=== PATIENT | female | born 1975 | race Caucasian/White ===

== ENCOUNTER 2019-09-11 21:45 | Observation (INO) | payer OTHER ==
--- OUTSIDE RECORDS SUMMARY | 2019-09-11 22:04 | XMS REPORT | Continuity of Care Document ---
:1975 External Reference #:[id number] Author Name Jayson Mahoney M.D. (transmitted by agent of provider Sridevi Yu) Address [address] [place] [address] Care Team Providers Name Role Phone Parisa Huang NP Care Team Information Rda [phone] Problems Description No Information Available Social History Type Date Description Comments Sex Unknown Tobacco Use Start: Unknown Current Cigarette Smoker 1 Pack Daily ETOH Use Rare Use Of Alcohol Recreational Drug Use Never Used Drugs Allergies, Adverse Reactions, Alerts Description No Known Drug Allergies Medications Active Medications SIG Qnty Indications Ordering Date Provider Pilocarpine HCL 1 by mouth twice a 60tabs Jayson Mahoney, 05/15/2019 5mg day M.D. Tablets Levothyroxine Sodium 1 by mouth every 60tabs Jayson Mahoney, 09/09/2018 day M.D. 300mcg Tablets Calcitriol 1 by mouth twice a 60caps Jayson Mahoney, 03/21/2017 0.5mcg day M.D. Capsules Omeprazole 1 by mouth every 30caps Jayson Mahoney, 02/24/2015 40mg day M.D. Capsules DR Eliel Steniberg 1 inhalation twice Unknown a day 400mcg/Act Aerosol Proair HFA 2puffs four times Unknown 108(90Base) a day as needed mcg/Act Aerosol for sob Oxycodone HCL Unknown Tablets Spiriva Respimat take 2 puffs once Unknown daily. 1.25mcg/Act Aerosol Atorvastatin Calcium 1 by mouth every Unknown day 40mg Tablets Medications Administered in Office Medication SIG Qnty Indications Ordering Provider Date Injection Ceftriaxone Sodium Per Jayson Mahoney M.D. 10/27/2018 250 MG (Rocephin) Injection Depomedrol 40md/1cc Jayson Mahoney M.D. 10/06/2017 Injection Immunizations Description No Information Available Vital Signs Date Vital Result Comment 09/11/2019 1:15pm Weight 224.00 lb Height 67 inches 5'7" BMI (Body Mass Index) 35.1 kg/m2 BP Systolic 151 mmHg BP Diastolic 97 mmHg Heart Rate 117 /min O2 % BldC Oximetry 95 % Body Temperature 97.7 F Pain Level 0 05/15/2019 1:13pm Weight 212.00 lb Height 67 inches 5'7" BMI (Body Mass Index) 33.2 kg/m2 BP Systolic 154 mmHg BP Diastolic 68 mmHg Heart Rate 118 /min O2 % BldC Oximetry 94 % Body Temperature 97.1 F Pain Level 0 Results Description No Information Available Procedures Date Code Description Status 05/15/2019 27265 Ultrasound Head/Neck Completed 05/15/2019 40747 Fiberoptic Laryngoscopy,Diag. Completed 03/14/2019 60226 Ultrasound Head/Neck Completed 03/14/2019 97947 Fiberoptic Laryngoscopy,Diag. Completed Medical Devices Description No Information Available Encounters Type Date Location Provider Dx Diagnosis Office Visit 05/15/2019 Main Office Jayson Mahoney M.D. Z85.850 Personal history of 1:15p malignant neoplasm of thyroid E03.9 Hypothyroidism, unspecified R49.0 Dysphonia K21.9 Gastro-esophageal reflux disease without esophagitis Office Visit 03/14/2019 1:00p Main Office Jayson Mahoney Z85.850 Personal history M.DBlanca of malignant neoplasm of thyroid E03.9 Hypothyroidism, unspecified R49.0 Dysphonia R06.02 Shortness of breath Assessments Date Code Description Provider 05/15/2019 Z85.850 Personal history of malignant neoplasm of Jayson Mahoney M.D. thyroid 05/15/2019 E03.9 Hypothyroidism, unspecified Jayson Mahoney M.D. 05/15/2019 R49.0 Dysphonia Jayson Mahoney M.D. 05/15/2019 K21.9 Gastro-esophageal reflux disease without Jayson Mahoney M.D. esophagitis 03/14/2019 Z85.850 Personal history of malignant neoplasm of Jayson Mahoney M.D. thyroid 03/14/2019 E03.9 Hypothyroidism, unspecified Jayson Mahoney M.D. 03/14/2019 R49.0 Dysphonia Jayson Mahoney M.D. 03/14/2019 R06.02 Shortness of breath Jayson Mahoney M.D. Plan of Treatment No Information Available Functional Status Description No Information Available Mental Status Description No Information Available Referrals Description No Information Available
--- OUTSIDE RECORDS SUMMARY | 2019-09-11 22:04 | XMS REPORT | Continuity of Care Document ---
:1975 External Reference #:[id number] Demographics Address [address] [place] [address] Home Phone [phone] Mobile Phone [phone] Preferred Language en Marital Status Not or Episcopalian Affiliation Unknown Race White Ethnic Group Not or Author Name Marc Gutierrez DO, MPH Address [address] [place] [address], [address] [place] [address] Care Team Providers Name Role Phone Sean Pratt M.D. - Family Care Team Information Civil Process Server [phone] Medicine Rashmi Valiente Care Team Information Civil Process Server [phone] Problems Description No Information Available Social History Type Date Description Comments Sex Unknown Cigarette Use Current Cigarette Smoker 1 Pack Daily ETOH Use Denies alcohol use Tobacco Use Start: Unknown Patient is a current smoker, smokes every day Smoking Status Reviewed: 08/17/19 Patient is a current smoker, smokes every day Allergies, Adverse Reactions, Alerts Description No Known Drug Allergies Medications Active Medications SIG Qnty Indications Ordering Date Provider Cyclobenzaprine HCL si/2 to 1 60tabs Marc Gutierrez, 12/28/2018 10mg Tablets by mouth twice DO, MPH a day as directed Alpha Lipoic Acid take one 60caps Marc Gutierrez, 11/11/2016 200mg Capsules capsule by DO, MPH mouth every 8 to 12 hours as directed chronic pain. Oxycodone HCL si by mouth 80tabs Marc Gutierrez, 09/14/2016 10mg Tablets every 4 to 6 DO, MPH hours as directed chronic pain patient. Dok Unknown 100mg Capsules Hydrochlorothiazide 1 by mouth Unknown 25mg Tablets every day Bupropion Hydrochloride ER Unknown (SR) 150mg Tablets ER 12HR VT-Acid Gas Relief Unknown 80mg Chewtabs Anoro Ellipta Unknown 62.5-25mcg/Inh Aerosol Ibuprofen as needed Unknown 800mg Tablets Qvar Redihaler Unknown 80mcg/Act Aerosol Calcitriol 1 by mouth Unknown 0.25mcg Capsules twice a day Albuterol Inhalation Unknown 90mcg/Dose Aerosol Tylenol Extra Strength si by mouth Unknown 500mg every day as Tablets directed Atorvastatin Calcium Unknown 40mg Tablets Synthroid Unknown 300mcg Tablets Citracal +D3 Unknown [phone]-mg-Unit Chewtabs Omeprazole si by mouth Unknown 40mg Capsules DR once a day as directed dosage change Immunizations Description No Information Available Vital Signs Date Vital Result Comment 08/17/2019 10:55am BP Systolic 128 mmHg BP Diastolic 76 mmHg Heart Rate 78 /min Respiratory Rate 20 /min Height 67 inches 5'7" Weight 217.00 lb Pain Level 3 Pain at this time. Pain Level With Medicine 2 on average with meds Pain Level Without Medicine 9 without meds BMI (Body Mass Index) 34.0 kg/m2 07/18/2019 3:08pm BP Systolic 146 mmHg BP Diastolic 82 mmHg Heart Rate 88 /min Respiratory Rate 20 /min Height 67 inches 5'7" Weight 218.00 lb Pain Level 6 Pain at this time. 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 Office Visit 06/18/2019 3:15p Main Office as Marc Gutierrez G89.29 Other chronic Of 09/29/13 DO, MPH pain M54.5 Low back pain M54.2 Cervicalgia M79.605 Pain in left leg M79.604 Pain in right leg 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 Z71.89 Other specified counseling Office Visit 05/10/2019 2:45p Main Office as Marc Gutierrez G89.29 Other chronic Of 09/29/13 DO, MPH pain M54.5 Low back pain M54.2 Cervicalgia 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 Office Visit 04/10/2019 3:00p Main Office as Marc Gutierrez G89.29 Other chronic Of 09/29/13 DO, MPH pain M54.2 Cervicalgia M54.5 Low back pain 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 Z71.89 Other specified counseling Office Visit 03/09/2019 2:30p Main Office as Marc Gutierrez, G89.29 Other chronic Of 09/29/13 DO, MPH pain M54.2 Cervicalgia M54.5 Low back pain Z79.891 correction (current) use of opiate analgesic Assessments Date Code Description Provider 08/17/2019 G89.29 Other chronic pain Gutierrez, Marc, DO, MPH 08/17/2019 M54.2 Cervicalgia Gutierrez, Marc, DO, MPH 08/17/2019 M54.5 Low back pain Gutierrez, Marc, DO, MPH 08/17/2019 M79.605 Pain in left leg Gutierrez, Marc, DO, MPH 08/17/2019 M79.604 Pain in right leg Gutierrez, Marc, DO, MPH 08/17/2019 Z79.891 correction (current) use of opiate analgesic Gutierrez, Marc , DO, MPH 07/18/2019 G89.29 Other chronic pain Gutierrez, Marc, DO, MPH 07/18/2019 M54.2 Cervicalgia Gutierrez, Marc, DO, MPH 07/18/2019 M54.5 Low back pain Gutierrez, Marc, DO, MPH 07/18/2019 M79.605 Pain in left leg Gutierrez, Marc, DO, MPH 07/18/2019 M79.604 Pain in right leg Gutierrez, Marc, DO, MPH 07/18/2019 Z79.891 correction (current) use of opiate analgesic Gutierrez, Marc , DO, MPH 06/18/2019 G89.29 Other chronic pain Gutierrez, Marc, DO, MPH 06/18/2019 M54.5 Low back pain Gutierrez, Marc, DO, MPH 06/18/2019 M54.2 Cervicalgia Gutierrez, Marc, DO, MPH 06/18/2019 M79.605 Pain in left leg Gutierrez, Marc, DO, MPH 06/18/2019 M79.604 Pain in right leg Gutierrez, Marc, DO, MPH 06/18/2019 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 Gutierrez, Marc , DO, MPH 06/18/2019 Z71.89 Other specified counseling Gutierrez, Marc, DO, MPH 05/10/2019 G89.29 Other chronic pain Gutierrez, Marc, DO, MPH 05/10/2019 M54.5 Low back pain Gutierrez, Marc, DO, MPH 05/10/2019 M54.2 Cervicalgia Gutierrez, Marc, DO, MPH 05/10/2019 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 Gutierrez, Marc , DO, MPH 04/10/2019 G89.29 Other chronic pain Gutierrez, Marc, DO, MPH 04/10/2019 M54.2 Cervicalgia Gutierrez, Marc, DO, MPH 04/10/2019 M54.5 Low back pain Gutierrez, Marc, DO, MPH 04/10/2019 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 Symptoms and complaints discussed and reviewed today. No significant changes in physical findings. Continue current medical pain management.M54.2 CervicalgiaComments:Chronic. Symptoms and complaints discussed and reviewed today. No significant changes in physical findings. Continue current medical pain management.M54.5 Low back painComments:Chronic. Symptoms and complaints discussed and reviewed today.No changes in physical findings. Patient is stable and comfortable when current medical therapy is rendered.M79.605 Pain in left legComments:Chronic. Symptoms and complaints discussed and reviewed today. No significant changes in physical findings. Continue current medical pain management.M79.604 Pain in right legComments: Chronic. Symptoms and complaints discussed and reviewed today. No significant changes in physical findings. Continue current medical pain management.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New Labs:Urine Drug Screen, Ordered: 08/17/19Comments:Urine drug screen sample taken today to monitor opiate use and to monitor use of illicit substances.Will discuss results at next appointment.The following tests were ordered:6 AM, AMPH, CHRIS, DEMARCUS, BUP, CARIS , COCM, ETG, FENT, MCSHSG, OPI, OXY, PCP, TAPEN, XTSY, ZOLP. A urine drug test (UDT) was ordered for this patient and collected on site today. Creatinine has been ordered as well for specimen validity, not for kidney function. Preliminary UDT results are not final and should not be used to determine patient care or plan of treatment. Initially a qualitative immunoassay screen will bedone. Any inconsistent or positive findings will be further tested with a more comprehensive quantitative confirmation LCMS study. It is part of the treatment process of prescribing controlled substances and is considered standard of care.AllComments:Continue current medical pain management ; injection therapy, osteopathic manipulation, PT / modalities, and consults as needed to manage chronic pain.Non - opioid pain management discussed and optionsdiscussed.Side effects discussed; anticipatory guidance given. Patient clearly understand and agree with all medical treatments and suggestions. All medicines prescribed are adequate and appropriate for this patient's complaint of pain, medical history, physical, and personal goals.Goals of Treatment are to provide adequate and appropriate multidisciplinary medical pain management to increase/ maintain patient's quality of life and functionality while maintaining satisfactory side effect profile andminimizing long term care administrator end-organ damage. Importance of regular nutrition throughout the day discussed.Activity as toleratedContinue with PCP Functional Status Description No Information Available Mental Status Description No Information Available Referrals Description No Information Available
--- OUTSIDE RECORDS SUMMARY | 2019-09-11 22:04 | XMS REPORT | Continuity of Care Document ---
:1975 External Reference #:[id number] Demographics Address [address] [place] [address] Home Phone [phone] Mobile Phone [phone] Preferred Language en Marital Status Not or Buddhist Affiliation Unknown Race White Ethnic Group Not or Author Name Marc Gutierrez DO, MPH Address [address] [place] [address], [address] [place] [address] Care Team Providers Name Role Phone Sean Pratt M.D. - Family Care Team Information Salesperson [employer] Medicine Rashmi Valiente Care Team Information Salesperson [employer] [phone] Problems Description No Information Available Social History Type Date Description Comments Sex Unknown Cigarette Use Current Cigarette Smoker 1 Pack Daily ETOH Use Denies alcohol use Tobacco Use Start: Unknown Patient is a current smoker, smokes every day Smoking Status Reviewed: 07/18/19 Patient is a current smoker, smokes every [...] chronic pain. Oxycodone HCL si by mouth 100tabs Marc Gutierrez, 09/14/2016 10mg Tablets every 4 to 6 DO, MPH hours as directed chronic pain patient. Dok Unknown 100mg Capsules Hydrochlorothiazide 1 by mouth Unknown 25mg Tablets every day Bupropion Hydrochloride ER Unknown (SR) 150mg Tablets ER 12HR NE-Acid Gas Relief Unknown 80mg Chewtabs Anoro Ellipta Unknown 62.5-25mcg/Inh Aerosol Ibuprofen as needed Unknown 800mg Tablets Qvar Redihaler Unknown 80mcg/Act Aerosol Calcitriol 1 by mouth Unknown 0.25mcg Capsules twice a day Albuterol Inhalation Unknown 90mcg/Dose Aerosol Tylenol Extra Strength si by mouth Unknown 500mg every day as Tablets directed Atorvastatin Calcium Unknown 40mg Tablets Synthroid Unknown 300mcg Tablets Citracal +D3 Unknown [id number]-mg-Unit Chewtabs Omeprazole si by mouth Unknown 40mg Capsules DR once a day as directed dosage change Immunizations Description No Information Available Vital Signs Date Vital Result Comment 07/18/2019 3:08pm BP Systolic 146 mmHg BP Diastolic 82 mmHg Heart Rate 88 /min Respiratory Rate 20 /min Height 67 inches 5'7" Weight 218.00 lb Pain Level 6 Pain at this time. 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 Z71.89 Other specified counseling Office Visit 05/10/2019 2:45p Main Office as Marc Gutierrez G89.29 Other chronic Of 09/29/13 DO, MPH pain M54.5 Low back pain M54.2 Cervicalgia 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 Office Visit 04/10/2019 3:00p Main Office as GutierrezMarc nielsen, G89.29 Other chronic Of 09/29/13 DO, MPH pain M54.2 Cervicalgia M54.5 Low back pain Z79.891 snf (current) use of opiate analgesic Z71.89 Other specified counseling Office Visit 03/09/2019 2:30p Main Office as GutierrezMarc nielsen, G89.29 Other chronic Of 09/29/13 DO, MPH pain M54.2 Cervicalgia M54.5 Low back pain 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 Office Visit 02/08/2019 2:00p Main Office as GutierrezMarc nielsen, G89.29 Other chronic Of 09/29/13 DO, MPH pain M54.5 Low back pain M54.2 Cervicalgia Z63.4 Disappearance and of family member 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 Assessments Date Code Description Provider 07/18/2019 G89.29 Other chronic pain Gutierrez, Marc, DO, MPH 07/18/2019 M54.2 Cervicalgia Gutierrez, Marc, DO, MPH 07/18/2019 M54.5 Low back pain Gutierrez, Marc, DO, MPH 07/18/2019 M79.605 Pain in left leg Gutierrez, Marc, DO, MPH 07/18/2019 M79.604 Pain in right leg Gutierrez, Marc, DO, MPH 07/18/2019 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 Gutierrez, Marc , DO, MPH 06/18/2019 G89.29 Other chronic pain Gutierrez, Marc, DO, MPH 06/18/2019 M54.5 Low back pain Gutierrez, Marc, DO, MPH 06/18/2019 M54.2 Cervicalgia Gutierrez, Marc, DO, MPH 06/18/2019 M79.605 Pain in left leg Gutierrez, Marc, DO, MPH 06/18/2019 M79.604 Pain in right leg Gutierrez, Marc, DO, MPH 06/18/2019 Z79.891 snf (current) use of opiate analgesic Gutierrez, Marc , DO, MPH 06/18/2019 Z71.89 Other specified counseling Gutierrez, Marc, DO, MPH 05/10/2019 G89.29 Other chronic pain Gutierrez, Marc, DO, MPH 05/10/2019 M54.5 Low back pain Gutierrez, Marc, DO, MPH 05/10/2019 M54.2 Cervicalgia Gutierrez, Marc, DO, MPH 05/10/2019 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 Gutierrez, Marc , DO, MPH 04/10/2019 G89.29 Other chronic pain Gutierrez, Marc, DO, MPH 04/10/2019 M54.2 Cervicalgia Gutierrez, Marc, DO, MPH 04/10/2019 M54.5 Low back pain Gutierrez, Marc, DO, MPH 04/10/2019 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 Gutierrez, Marc , DO, MPH 04/10/2019 Z71.89 Other specified counseling Gutierrez, Marc, DO, MPH 03/09/2019 G89.29 Other chronic pain Gutierrez, Marc, DO, MPH 03/09/2019 M54.2 Cervicalgia Gutierrez, Marc, DO, MPH 03/09/2019 M54.5 Low back pain Gutierrez, Marc, DO, MPH 03/09/2019 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 Continue current medical pain management.Z79.891 snf (current) use of opiate analgesicNew Labs:Urine Drug Screen, Ordered: 07/18/19Comments:Urine drug screen sample taken today to monitor [...] while maintaining satisfactory side effect profile andminimizing correction end-organ damage. Importance of regular nutrition throughout the day discussed.Activity as toleratedContinue with PCP Functional Status Description No Information Available Mental Status Description No Information Available Referrals Description No Information Available
[2019-09-11] MEDS ORDERED: NS 0.9% 1000 ML** 1,000 ML IV ONE (22:30)
[2019-09-11] MEDS ORDERED: Metoclopramide IV* 5 MG/ML 2 ML VIAL IV ONE (22:30)
--- NOTE | 2019-09-11 22:52 | ED ---
Neurological HPI - HPI Summary HPI Summary: 44 year old female presents to the ED with a chief complaint of DIRECTOR [employer] SAFETY shunt discomfort and neck pain starting several days ago. Patient reports pain around her ear along her shunt as well as a dull headache behind her eyes. She had nausea and vomiting last week but has since resolved. Patient has no changes in vision fever, or chills. Patient smokes tobacco and drinks alcohol occasionally. She does not do recreational drugs. Patient had a hysterectomy, DIRECTOR [employer] SAFETY shunt insertion, and knee surgery. 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 PMHx of COPD. Medications reviewed. - History of Current Complaint Chief Complaint: EDHeadache Stated Complaint: CHECK SHUNT AND TUBE PER PT Time Seen by Provider: 09/11/19 22:27 Hx Obtained From: Patient Onset/Duration: Started days ago, Still Present Timing: Constant Onset Severity: Moderate Current Severity: Moderate Headache Location: Frontal Pain Intensity: 7 Pain Scale Used: 0-10 Numeric Character: Dull Aggravating: Headaches Alleviating: Unknown Associated Signs and Symptoms: Positive: Neck Pain/Stiffness - Additional Pertinent History Primary Care Physician: DON - Allergy/Home Medications Allergies/Adverse Reactions: Allergies Allergy/AdvReac Type Severity Reaction Status Date / Time No Known Allergies Allergy Verified 09/11/19 21:53 Home Medications: Home Medications Beclomethasone 80 MCG MDI(NF) [Qvar 80 MCG MDI(NF)] 1 puff INH BID 09/11/19 [ History Confirmed 09/11/19] Calcitriol CAP* [Rocaltrol CAP*] 0.5 mcg PO BID MDD 0.5 mcg 09/11/19 [History Confirmed 09/11/19] Cyclobenzaprine TAB* [Flexeril 10 MG TAB*] 5 - 10 mg PO BID PRN 09/11/19 [ History Confirmed 09/11/19] Docusate CAP* [Colace Cap*] 100 mg PO BID 09/11/19 [History Confirmed 09/11/19] Hydrochlorothiazide TAB* [Hydrodiuril TAB*] 12.5 mg PO DAILY 09/11/19 [History Confirmed 09/11/19] Levothyroxine Sodium [Synthroid] 300 mcg PO DAILY 09/11/19 [History Confirmed ] Oxycodone TAB(NF) [Oxycodone HCl 10 MG] 10 mg PO .Q4-6H PRN 09/11/19 [History Confirmed 09/11/19] Pilocarpine TAB (NF) 5 mg PO BID 09/11/19 [History Confirmed 09/11/19] Umeclidin/Vilant 62.5 MDI(NF) [ANORO 62.5/25 Ellipta DEVICE (NF)] 1 puff INH DAILY 09/11/19 [History Confirmed 09/11/19] buPROPion SR TAB* [Wellbutrin SR TAB*] 150 mg PO BID 09/11/19 [History Confirmed 09/11/19] PMH/Surg Hx/FS Hx/Imm Hx Endocrine/Hematology History: Reports: Hx Thyroid Disease - HYPOTHYROID- S/P- -THYROIDECTOMY Respiratory History: Reports: Hx Chronic Obstructive Pulmonary Disease (COPD), Other Respiratory Problems/Disorders - Voice hoarse/soft r/t surgery GI History: Reports: Hx Gastroesophageal Reflux Disease Musculoskeletal History: Reports: Hx Arthritis - BACK, Other Musculoskeletal History - Osteoarthritis Sensory History: Denies: Hx Contacts or Glasses, Hx Hearing Aid Opthamlomology History: Denies: Hx Contacts or Glasses Neurological History: Reports: Hx Headaches, Hx Migraine - TREATS WITH PAIN PILL OR ICE BACK AND REST, Other Neuro Impairments/Disorders - CHIARI MALFORMATION/SYRINGOMYELIA &SYRINGBULBIA - Cancer History Cancer Type, Location and Year: Thyroid-Rt lobe removed Hx Chemotherapy: No - Surgical History Surgery Procedure, Year, and Place: [id number]. THYROIDECTOMY-05/2015-[facility]- RIGHT side removed. LEFT KNEE SURGERY- PLATES AND SCREWS. RIGHT HANDS SURGERY- PLATES AND SCREWS. Chiari I, Cervical Laminectomy-09/2015, [employer]ET[employer] Shunt 11/2015 Hx Anesthesia Reactions: No Infectious Disease History: No Infectious Disease History: Denies: Hx of Known/Suspected MRSA, History Other Infectious Disease, Traveled Outside the [place] in Last 30 Days - Family History Known Family History: Positive: None - reviewed & noncontributory - Social History Alcohol Use: Occasionally Hx Substance Use: No Substance Use Type: Reports: None Hx Tobacco Use: Yes Smoking Status (MU): Heavy Every Day Tobacco Smoker Type: Cigarettes Amount Used/How Often: 1 PPD X 28 YEARS - Additional Comments History Additional Comments: PMHx Thyroid Cancer COPD Communicating hydrocephalus Subdural Hygroma s/p craniotomy (DIRECTOR [employer]AF[employer] shunt insertion) Review of Systems - ROS Summary Review of Systems Summary: Home Medications Medication Instructions Recorded Confirmed Type Omeprazole CAP (NF) [Prilosec CAP* 40 mg PO QAM 09/30/15 12/05/15 History 20 MG] Beclomethasone 80 MCG MDI(NF) 1 puff INH BID 09/11/19 09/11/19 History [Qvar 80 MCG MDI(NF)] Bupropion XL* [Wellbutrin XL *] 150 mg PO BID 09/11/19 09/11/19 History Calcitriol CAP* [Rocaltrol CAP*] 0.5 mcg PO BID MDD 0.5 mcg 09/11/19 09/11/19 History Cyclobenzaprine TAB* [Flexeril 10 5 - 10 mg PO BID PRN 09/11/19 09/11/19 History MG TAB*] Docusate CAP* [Colace Cap*] 100 mg PO BID 09/11/19 09/11/19 History Hydrochlorothiazide TAB* 12.5 mg PO DAILY 09/11/19 09/11/19 History [Hydrodiuril TAB*] Levothyroxine Sodium [Synthroid] 300 mcg PO DAILY 09/11/19 09/11/19 History Oxycodone TAB(NF) [Oxycodone HCl 10 mg PO .Q4-6H PRN 09/11/19 09/11/19 History 10 MG] Pilocarpine TAB (NF) 5 mg PO BID 09/11/19 09/11/19 History Umeclidin/Vilant 62.5 MDI(NF) 1 puff INH DAILY 09/11/19 09/11/19 History [ANORO 62.5/25 Ellipta DEVICE (NF)] Negative: Fever Negative: Blurred Vision Positive: Vomiting, Nausea Positive: Myalgia - Neck pain along DIRECTOR [employer] shunt, behind ear Positive: Headache - Dull pain behind eyes, radiating to neck All Other Systems Reviewed And Are Negative: Yes Physical Exam - Summary Physical Exam Summary: General: Obese female. Mildly uncomfortable at rest. HEENT: Normocephalic, Atraumatic. Eyes: Conjuctiva normal, PERRL. Ears: TMs within normal limits. Nares: (-) discharge, (-) erythema. Oropharynx: Clear, mucous membranes moist, (-) exudates. Neck: Soft, FROM, (-) lymphadenopathy, (-) thyromegaly, (-) JVD. Mildly tender linear extrusion behind right ear. Hoarse voice. Cardiovascular: Normal sinus rhythm, (-) murmur. Lungs: Clear to auscultation bilaterally (-) wheezes, (-) rales, (-) rhonchi. Abdomen: Soft, non-tender, non-distended, (-) organomegaly, normal bowel sounds. Back: (-) CVA tenderness Extremities: No edema. Skin: Warm, dry, (-) rash. Neuro: Alert and oriented x3, no focal deficits. Psychiatric: Mood normal, affect normal. Triage Information Reviewed: Yes Vital Signs On Initial Exam: Initial Vitals Temp Pulse Resp BP Pulse Ox 97.2 F 114 20 172/106 96 09/11/19 21:50 09/11/19 21:50 09/11/19 21:50 09/11/19 21:50 09/11/19 21:50 Vital Signs Reviewed: Yes Procedures - Sedation Patient Received Moderate/Deep Sedation with Procedure: No Diagnostics - Vital Signs Vital Signs Temp Pulse Resp BP Pulse Ox 09/11/19 21:50 97.2 F 114 20 172/106 96 - Laboratory Result Diagrams: 09/11/19 23:46 09/12/19 05:26 Lab Statement: Any lab studies that have been ordered have been reviewed, and results considered in the medical decision making process. - CT Brain CT CT Interpretation Completed By: Radiologist Summary of CT Findings: IMPRESSION: 1. Patient has had a posterior fossa craniotomy. Placement of a left lateral ventricular catheter. Since prior head CT of 07/28/2018 there has been no new findings. 2. Slit-like ventricles lateral ventricles. This can be the cause of headaches. An ED physician has reviewed this report. Course/Dx - Course Course Of Treatment: 44-year-old female presents with headaches 1-2 weeks. Patient has a history of Chiari malformation and DIRECTOR MED[employer]AFET[employer] shunt. She's been having headaches over the last couple weeks. Sometimes with nausea vomiting. Spoke with her neurosurgeon who referred her for evaluation. Patient has a palpable shunt behind her right ear. No significant laboratory findings. CT head demonstrates slit like ventricles. Patient referred to the hospitalist for admission and neurosurgical consult. - Diagnoses Provider Diagnoses: Chiari malformation type I, Headache - Physician Notifications Discussed Care Of Patient With: Natalia Ambriz - Hospitalist Time Discussed With Above Provider: 23:15 Instructed by Provider To: Admit As Inpatient - Spoke to Dr. Ambriz who accepted patient for admission. Admit/Transition Orders Completed By ED Provider: Yes Discharge ED - Sign-Out/Discharge Documenting (check all that apply): Patient Departure - admit home - Discharge Plan Condition: Fair Disposition: ADMITTED TO [facility] - Billing Disposition and Condition Condition: FAIR Disposition: Admitted to [facility] - Attestation Statements Document Initiated by Scribe: Yes Documenting Scribe: Davide Vega Provider For Whom Scribe is Documenting (Include Credential): Kyra Hall MD Scribe Attestation: Davide Quesada , scribed for Kyra Hall MD on 09/14/19 at 2131. Scribe Documentation Reviewed: Yes Provider Attestation: The documentation as recorded by the scribeDavide accurately reflects the service I personally performed and the decisions made by Kyra maloney MD Status of Scribe Document: Viewed
[2019-09-11] MEDS ORDERED: Ondansetron INJ* 2 MG/ML VIAL IV PRN (23:17)
[2019-09-11] MEDS ORDERED: Nicotine Lozenge* mini 4 MG LOZNG.MINI MT PRN (23:18)
[2019-09-11] MEDS ORDERED: Albuterol/Ipratropium NEB.SOL* Albuterol 2.5 MG/Ipratropium 0.5 MG 3 ML INH PRN (23:18)
[2019-09-11 23:53] LABS: ABS Basophils 0.1 10^3/ul (0-0.2); ABS Eosinophils 0.1 10^3/ul (0-0.6); ABS Lymphocytes 2.3 10^3/ul (1.0-4.8); ABS Monocytes 0.5 10^3/ul (0-0.8); ABS Neutrophils 4.9 10^3/ul (1.5-7.7); Eosinophil % 1.6 %; Hematocrit 41 % (35-47); Hemoglobin 14.2 g/dL (12.0-16.0); Lymphocyte % 28.9 %; Mean Corpuscular HGB Conc 35 g/dL (31-36); Mean Corpuscular Hemoglobin 36 pg (27-31); Mean Corpuscular Volume 103 fL (80-97); Mean Platelet Volume 7.6 fL (7.4-10.4); Nucleated Red Blood Cells % 0.1; Platelet Count 263 10^3/uL (150-450); Red Blood Count 4.01 10^6 /uL (3.70-4.87); Red Cell Distribution Width 14 % (10-15); White Blood Count 7.9 10^3/uL (3.5-10.8)
[2019-09-11 23:58] LABS: INR 1.03 (0.82-1.09)
[2019-09-12 00:10] LABS: Albumin 3.7 g/dL (3.2-5.2); Albumin/Globulin Ratio 1.4 (1-3); BUN/Creatinine Ratio 13.4 (8-20); Calcium 8.9 mg/dL (8.6-10.3); EGFR African American 114.7 (>60); EGFR Non-African American 94.8 (>60); Globulin 2.6 g/dL (2-4); Potassium 3.4 mmol/L (3.5-5.0); Total Bilirubin 0.4 mg/dL (0.2-1.0); Total Protein 6.3 g/dL (6.4-8.9)
[2019-09-12 00:17] LABS: HCG Pregnancy 2.84 mIU/mL
--- NOTE | 2019-09-12 01:08 | HP ---
HISTORY AND PHYSICAL: DATE OF ADMISSION: 09/11/19 PRIMARY CARE PROVIDER: Usha Shields NP GUEST RELATIONS MANAGER: Baldo Lemons, patient's fiance. CODE STATUS: Full. CHIEF COMPLAINT: Headaches. SOURCE OF INFORMATION: HPI is obtained from patient. She is a fair historian. HISTORY OF PRESENT ILLNESS: This is a 44-year-old female with past medical history of Chiari malformation type 1, status post surgical decompression complicated by hydrocephalus in November of 2015, status post AWNING HANGER HELPER shunt; history of thyroid carcinoma, status post partial thyroidectomy and resultant hypothyroidism; hypertension; tobacco use; COPD; obesity; chronic pain, on long- term opiate pain medication, who initially presented to [place] [facility] with complaint of intense headache and "palpable shunt in her neck." The patient reports that she has had intermittent worsening headaches over the last 1 to 2 weeks associated with nausea and episodes of emesis. She denies gait changes, vision changes, or new neurologic function. She assumed initially that it was a musculoskeletal issue but then she noticed that behind her right ear, she felt that her shunt "shifted," previously before where it had not been palpable , it became palpable and thus she called her neurosurgeon, who recommended she be admitted to the hospital for observation and shunt check on 09/12/19. She denies any fevers, chills, vision changes, gait changes, or focal neurological deficits, she reports that her headaches are not positional. EMERGENCY ROOM COURSE In [place], her vital signs were stable, 135/100, heart rate 102, respiratory rate 25, 95% on room air, and 97.7. They called Dr. Harris, who informed them to transfer the patient here. In the emergency room, her blood pressure is 130/106, heart rate is 104, temperature is 97.2. She is 96% on room air. She was given IV fluids and Reglan. Labs were performed, which are largely unremarkable and a CT head was performed that showed no evidence of hydrocephalus, and some "slit like" ventricles concerning for low CSF volume. Because of pending neurosurgical evaluation, the hospitalist was asked to admit under observation. PAST MEDICAL HISTORY: History of Chiari malformation, status post surgical decompression, complicated by hydrocephalus in November of 2015 and status post AWNING HANGER HELPER shunt; history of thyroid carcinoma, status post thyroidectomy with resultant hypothyroidism; hypertension; tobacco use; COPD; obesity; chronic pain, on long - term opiate pain medication. PAST SURGICAL HISTORY: Surgical decompression of Chiari, repair of CSF leak in 09/2015, 11/2015; AWNING HANGER HELPER shunt; knee surgery; hysterectomy; and thyroidectomy, partial. MEDICATIONS: 1. Omeprazole 40 daily. 2. QVAR 1 puff inhaled b.i.d. 3. Bupropion 150 mg p.o. b.i.d. 4. Calcitriol 0.5 mcg p.o. b.i.d. 5. Cyclobenzaprine 5 to 10 mg p.o. b.i.d. p.r.n. 6. Docusate 100 mg p.o. b.i.d. 7. Hydrochlorothiazide 12.5 mg p.o. daily. 8. Levothyroxine 300 mcg p.o. daily. 9. Oxycodone 10 mg p.o. q.6 hours p.r.n. 10. Pilocarpine 5 mg p.o. b.i.d. 11. Anoro inhaler 1 puff inhaled daily. 12. Omeprazole 40 mg p.o. q.a.m. ALLERGIES: No known drug allergies. FAMILY HISTORY: Positive for heart disease and lung disease. SOCIAL HISTORY: The patient is disabled. She lives at home with wilmer. She has a 20-pack year history with 1 pack per day currently. She denies alcohol or illicits. REVIEW OF SYSTEMS: Constitutional: Negative for fever, chills, malaise. HEENT : Negative for vision changes, positive for headache. Negative for sore throat. Cardiovascular: Negative for chest pain, palpitations, orthopnea. Respiratory: Negative for shortness of breath, cough, or pleuritic chest pain. GI: Negative for vomiting, diarrhea. Positive for nausea. Negative for abdominal pain. : Negative for dysuria or hematuria. Musculoskeletal: Negative for myalgias, arthralgias, or weakness. Skin: Negative for rashes or lesions. Neurologic: Negative for focal weakness or numbness. Psychiatric: Negative for depression. Positive for worsening anxiety. Endocrine: Negative for polyuria or polydipsia. Heme: Negative for easy bruising, bleeding or lymphadenopathy. Allergy: Negative for seasonal or frequent infections. PHYSICAL EXAMINATION GENERAL APPEARANCE: Well-appearing obese woman, in no acute distress, lying comfortably in bed. VITAL SIGNS: At the time of physical exam, 97.2, heart rate 100, respiratory rate 20, oxygen saturation 96% on room air, blood pressure 130/90. HEENT: Pupils equal and reactive. Extraocular muscles are intact. Sclerae are anicteric. Oropharynx is clear. Mallampati 4. Dry mucous membranes. NECK: Supple with tenderness to palpation at right sternocleidomastoid. ? Possible palpable shunt, negative meningeal signs. Otherwise supple with no supraclavicular or cervical lymphadenopathy. RESPIRATORY: Coarse lungs sounds throughout but no israel wheeze, consolidation , or rhonchi. CARDIAC: Regular rate and rhythm with no murmurs, rubs or gallops. GI: Belly is soft, nontender, nondistended with normal active bowel sounds and no tenderness to palpation. SKIN: With no obvious rashes or lesions. MUSCULOSKELETAL: She moves all 4 limbs spontaneously. EXTREMITIES: Warm and well perfused without evidence of edema and 2+ palpable pulses in bilateral lower extremities. NEUROLOGIC/PSYCHIATRIC: Cranial nerves II through XII are intact. She is A and O x4. She has nonfocal neurologic deficits with 5/5 strength. Sensation intact throughout. LABS AND STUDIES: CBC: Notable for elevated MCV at 100, BMP: Notable for mild hypoK at 3.4, otherwise normal CT head shows AWNING HANGER HELPER shunt with no evidence of active hydrocephalus or and "slit like ventricles" ASSESSMENT AND PLAN: A 44-year-old female with past medical history of Chiari malformation type 1, status post surgical decompression, complicated by hydrocephalus in November 2015, status post ventriculoperitoneal shunt; history of thyroid carcinoma with resultant medical hypothyroidism; hypertension; tobacco use; chronic obstructive pulmonary disease; obesity; chronic pain, on long-term opiate pain medication, who presented with intermittent headaches associated with nausea, a complaint of "palpable shunt" or change in her shunt status. She is being admitted for neurosurgical evaluation under observation to the surgical floor. She has no signs of current infection, blockage, though possibly has malfunction of the reservoir as she appears to have low CSF volume. 1. Headache in the setting of ventriculoperitoneal shunt. Neurosurgery can evaluate her tomorrow and determine if there are any further diagnostic steps that they would like. She has no evidence of immediate complication during emergency room evaluation, possibly headache related to small size of ventricles and overdrainage. 2. Hypertension: We will resume the patient's home hydrochlorothiazide. 3. Hypothyroidism: We will continue patient's home Synthroid and check TSH with morning labs. 4. Chronic pain. Her home opiates are continued. 5. She denies any constipation. Last bowel movement was this morning. 6. Chronic obstructive pulmonary disease: The patient is on home meds. She is currently not in exacerbation. Her inhalers will be offered as well as p.r.n. DuoNebs along with nicotine replacement. 7. Tobacco use: Nicotine replacements offered. Continue Wellbutrin 150 mg p.o. b.i.d. 8 Gastroesophageal reflux disease: Continue proton pump inhibitor. 9 DVT prophylaxis: The patient will be placed on heparin subcutaneously. 10 Code status is full. 11 Disposition: Admit to observation on surgical stay unit for neurosurgical evaluation. We will make n.p.o. after midnight in the event they want any further sedation for further diagnostics on 09/12/19. TIME SPENT: Forty-five minutes was spent on planning this admission with over half of that spent directly at the bedside with the patient providing direct patient care. Plan of care is discussed with the patient, who has no further questions. [id number]/[facility] #: [id number] [facility]
[2019-09-12 01:57] LABS: Urine Appearance Cloudy; Urine Bilirubin Negative (Negative); Urine Blood Negative (Negative); Urine Color Yellow; Urine Glucose Negative (Negative); Urine Ketones Negative (Negative); Urine Nitrite Negative (Negative); Urine Protein Negative (Negative); Urine Specific Gravity 1.012 (1.010-1.030); Urine Urobilinogen Negative (Negative)
[2019-09-12] MEDS: Levothyroxine TAB* 150 MCG TAB PO SCH (05:25)
[2019-09-12] MEDS: Acetaminophen TAB* 325 MG PO PRN ×3 (05:25→20:01)
[2019-09-12 05:52] LABS: BUN/Creatinine Ratio 12.1 (8-20); Calcium 9.1 mg/dL (8.6-10.3); EGFR African American 116.7 (>60); EGFR Non-African American 96.4 (>60); Potassium 3.8 mmol/L (3.5-5.0)
[2019-09-12] MEDS ORDERED: Heparin VIAL(*) 5000 UNITS/ML VIAL (FIVE THOUSAND) SUBCUT SCH (06:00)
[2019-09-12 06:14] LABS: TSH (Thyroid Stimulating Horm) 5.1 mcIU/mL (0.34-5.60)
[2019-09-12] MEDS: Nicotine PATCH 14 MG/24 HR* PATCH TRANSDERM SCH (07:29)
[2019-09-12] MEDS: Calcitriol CAP* 0.25 MCG PO SCH ×2 (08:35→21:44)
[2019-09-12] MEDS: Tiotropium Brom/Olodaterol MDI INH SCH (08:36)
[2019-09-12] MEDS: Hydrochlorothiazide TAB* 25 MG PO SCH (08:38)
[2019-09-12] MEDS: Docusate CAP* 100 MG PO SCH ×2 (08:38→21:44)
[2019-09-12] MEDS: Pantoprazole TAB * 40 MG TAB PO SCH (08:38)
[2019-09-12] MEDS: buPROPion SR TAB.SR* 150 MG PO SCH ×2 (08:39→21:44)
[2019-09-12] MEDS: oxyCODONE TAB* 5 MG TAB PO PRN ×2 (12:04→20:01)
[2019-09-12] MEDS: Heparin VIAL(*) 5000 UNITS/ML VIAL (FIVE THOUSAND) SUBCUT SCH ×2 (14:20→21:43)
[2019-09-12] MEDS ORDERED: Mometasone 220 MCG MDI INH SCH (18:00)
--- NOTE | 2019-09-12 18:45 | PN ---
Subjective Date of Service: 09/12/19 Interval History: Patient continues to c/o headache rated at a 7. Denies chest pain or shortness of breath. Denies abd pain. n/v/d. denies fever or chills. Denies visual changes, lightheadedness or dizziness Family History: Unchanged from Admission Social History: Unchanged from Admission Past Medical History: Unchanged from Admission Objective Active Medications: Acetaminophen (Tylenol Tab*) 650 mg PO Q6H PRN PRN Reason: PAIN - MILD Last Admin: 09/12/19 12:04 Dose: 650 mg Albuterol/Ipratropium (Duoneb (Albuterol 2.5 Mg/Ipratropium 0.5 Mg)) 1 neb INH Q4H PRN PRN Reason: SOB/WHEEZING Bupropion HCl (Wellbutrin Sr Tab*) 150 mg PO BID [facility] Last Admin: 09/12/19 08:39 Dose: 150 mg Calcitriol (Rocaltrol Cap*) 0.5 mcg PO BID [facility] Last Admin: 09/12/19 08:35 Dose: Not Given Docusate Sodium (Colace Cap*) 100 mg PO BID [facility] Last Admin: 09/12/19 08:38 Dose: 100 mg Heparin Sodium (Porcine) (Heparin Vial(*)) 5,000 units SUBCUT Q8HR [facility] Last Admin: 09/12/19 14:20 Dose: 5,000 units Hydrochlorothiazide (Hydrodiuril Tab*) 12.5 mg PO DAILY [facility] Last Admin: 09/12/19 08:38 Dose: 12.5 mg Levothyroxine Sodium (Synthroid Tab*) 300 mcg PO DAILY@0600 [facility] Last Admin: 09/12/19 05:25 Dose: 300 mcg Mometasone Furoate (Asmanex 220 Mcg Mdi *) 1 puff INH QPM [facility] Last Admin: 09/12/19 17:28 Dose: 1 puff Nicotine (Nicotine Patch 14 Mg/24 Hr*) 1 patch TRANSDERM DAILY [facility] Last Admin: 09/12/19 07:29 Dose: 1 patch Nicotine Polacrilex (Nicotine Lozenge Mini) 4 mg MT Q2H PRN PRN Reason: CRAVING Ondansetron HCl (Zofran Inj*) 4 mg IV Q6H PRN PRN Reason: NAUSEA Oxycodone HCl (Roxycodone Tab*) 10 mg PO Q6H PRN PRN Reason: PAIN - SEVERE Last Admin: 09/12/19 12:04 Dose: 10 mg Pantoprazole Sodium (Protonix Tab*) 40 mg PO QAM [facility] Last Admin: 09/12/19 08:38 Dose: 40 mg Pharmacy Profile Note (Nicotine Patch Removal Note*) 1 note FOLLOW UP 2100 [facility] Tiotropium [place]/Olodaterol (Stiolto Respimat Inh [place] (60 Puff)) 2 puff INH DAILY [facility] Last Admin: 09/12/19 08:36 Dose: 2 puff Vital Signs - 8 hr 09/12/19 09/12/19 09/12/19 11:00 12:04 14:58 Temperature 98 F Pulse Rate 108 88 Respiratory 16 20 Rate Blood Pressure 116/83 (mmHg) O2 Sat by Pulse 96 Oximetry 09/12/19 09/12/19 14:59 15:18 Temperature 97.9 F Pulse Rate Respiratory 20 16 Rate Blood Pressure 130/81 (mmHg) O2 Sat by Pulse 96 Oximetry Oxygen Devices in Use Now: None Appearance: alert and oriented x 3 , no acute distress Eyes: No Scleral Icterus Ears/Nose/Mouth/Throat: Clear Oropharnyx, Mucous Membranes Moist Neck: NL Appearance and Movements; NL JVP, Trachea Midline Respiratory: Symmetrical Chest Expansion and Respiratory Effort, Clear to Auscultation Cardiovascular: NL Sounds; No Murmurs; No JVD, No Edema Abdominal: NL Sounds; No Tenderness; No Distention Extremities: No Edema, No Clubbing, Cyanosis Skin: No Rash or Ulcers Neurological: Alert and Oriented x 3 Nutrition: Taking PO's Result Diagrams: 09/11/19 23:46 09/12/19 05:26 Microbiology and Other Data: Microbiology 09/12/19 02:30 Nasal Screen MRSA (PCR) - Final Nasal Mrsa Not Detected Assess/Plan/Problems-Billing Assessment: - Patient Problems (1) Chiari malformation type I Current Visit: Yes Status: Acute Comment: headache- -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 - no change in correct position - repeat CT head in 3-4 weeks per neurosurgery - Neurosurgery consulted - patient can be discharged tomorrow if feeling better , will need repeat lateral abd x ray tomorrow AM (2) Hypothyroid Current Visit: Yes Status: Acute Code(s): E03.9 - HYPOTHYROIDISM, UNSPECIFIED SNOMED Code(s): 00434824 Comment: continue levothyroxine 300mcg daily (3) HTN (hypertension) Current Visit: Yes Status: Acute Code(s): I10 - ESSENTIAL (PRIMARY) HYPERTENSION SNOMED Code(s): 44903379 Comment: SBP stable continue hctz (4) COPD (chronic obstructive pulmonary disease) Current Visit: Yes Status: Acute Code(s): J44.9 - CHRONIC OBSTRUCTIVE PULMONARY DISEASE, UNSPECIFIED SNOMED Code(s): 16759353 Comment: stable- not in exacerbation Continue home inhalers (5) Chronic pain Current Visit: Yes Status: Acute Code(s): G89.29 - OTHER CHRONIC PAIN SNOMED Code(s): 21716764 Comment: continue oxycodone at home dosing (6) DVT prophylaxis Current Visit: Yes Status: Acute Code(s): Z29.9 - ENCOUNTER FOR PROPHYLACTIC MEASURES, UNSPECIFIED SNOMED Code(s): 209254159 Comment: heparin (7) Full code status Current Visit: Yes Status: Acute Code(s): Z78.9 - OTHER SPECIFIED HEALTH STATUS SNOMED Code(s): 072604921 Status and Disposition: discharge home when medically stable
[2019-09-12 18:59] LABS: Folate 9.25 ng/mL (>3.99)
--- NOTE | 2019-09-12 20:12 | CONS ---
CONSULTATION NOTE: DATE OF CONSULT: 09/12/19 HISTORY OF PRESENT ILLNESS: The patient is a very pleasant 44-year-old female with an extensive past medical history of Chiari malformation by Dr. Lou on 10/07/15. 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 Because of development of hydrocephalus, the patient had a ventriculostomy placed on 12/02/15 and then had a left frontal BRAZING MACHINE SETTER shunt placed on 12/04/15. The patient did quite well and was followed in Dr. Lou's office. She called our office yesterday with complaints of 2 weeks of headaches and reported that she was able to feel a swelling/protrusion in the course of the shunt on the right side of her neck. The patient was advised to go to the emergency room. She presented to [facility] and then she was transferred to our ED. The patient had a CT scan revealing postoperative changes with a left frontal BRAZING MACHINE SETTER shunt with slit ventricles, unchanged from the previous study compared to 07/28/18. The patient was admitted for observation and had a shunt series. Requested to see the patient by the hospitalist team, who kindly admitted the patient. The patient reports that she has been having a few days of headaches. She has been having chronic headaches, but she felt that this is slightly worse than usual. She denies any nausea or vomiting. She denies any difficulty with her speech or her vision. Denies any weakness, numbness, or tingling of her extremities. She is able to ambulate at her baseline. She denies any urinary or GI incontinence. Her perianal sensation is intact. The patient moved to the area from [place] with her . She lives with her and they have 1 son and 1 daughter. PAST MEDICAL HISTORY: Chiari malformation; thyroid carcinoma, status post thyroidectomy, with hypothyroidism; hypertension; COPD; obesity; chronic pain, on long-term opiate medication. PAST SURGICAL HISTORY: Chiari decompression, pseudomeningocele repair, BRAZING MACHINE SETTER shunt placement, knee surgery, hysterectomy, thyroidectomy. MEDICATIONS: The patient was on: 1. Omeprazole. 2. Bupropion. 3. Calcitriol. 4. Cyclobenzaprine. 5. Docusate. 6. Hydrochlorothiazide. 7. Levothyroxine. 8. Oxycodone. 9. Pilocarpine. 10. Anoro inhaler. ALLERGIES: No known drug allergies. FAMILY HISTORY: Heart disease, lung disease. SOCIAL HISTORY: The patient is on disability. Tobacco, positive. Alcohol, negative. Recreational drug use, negative. PHYSICAL EXAM: The patient is not in acute distress. She is awake, alert, and oriented x3. Her pupils are equal and reactive. Cranial nerves II through XII are grossly intact. Motor 4-5/5 in all extremities. No pronator drift. Sensory grossly intact to light touch. Deep tendon reflexes +1 bilaterally. No clonus. No Babinski. Jose C's negative. The patient's previous incisions are soft, clean, and dry; healed very well. No palpable protrusions at the course of the shunt on the right side of her neck. On my exam, the shunt valve pumps and refills slowly. The patient has no meningeal signs. The patient's abdominal incision is soft, clean, and dry. Her abdomen is soft, nontender to palpation, nontender to percussion. DIAGNOSTIC STUDIES: The patient had a CT scan of the brain revealing postoperative changes from posterior fossa decompression and left ventricular catheter placement with significant compression of both ventricular systems, left slightly more than the right and the CT scan had similar appearance with a previous study on 07/28/18. The patient's previous CT scans have been stable. Preoperative CT scan from 10/08/15 revealed again small ventricular size and the presence of a pseudomeningocele. The patient had a shunt series that revealed no discontinuation of the shunt. Unfortunately, there is no lateral abdominal x-ray. ASSESSMENT: The patient is a very pleasant 44-year-old female with history of Chiari decompression, pseudomeningocele repair, left frontal BRAZING MACHINE SETTER shunt placement , with complaints of headache and CT scan findings consistent with slit ventricles. PLAN: The patient at this point seems to be stable. Her headaches are improved. CT scan does not show any significant difference compared to the previous CT scans and shunt series does not reveal a discontinuation. I think that observation would be the best option for this patient. We may consider repeating CAT scan tomorrow or after a few weeks depending on how she will be doing in the next 12 to 24 hours. Discussed with the patient in detail regarding CT scan findings and possible need for shunt revision in the future. The patient understands. As of now, I think the shunt is functioning and there is no change compared to her previous baseline CT scan. Thank you for allowing us to participate in the care of this patient. Please do not hesitate to contact our office in case if you have any further questions or concerns regarding the care of this patient. [id number]/[facility] #: [id number] RENÉE
[2019-09-12] MEDS ORDERED: Nicotine Patch Removal NOTE FOLLOW UP SCH (21:00)
[2019-09-13] MEDS: Heparin VIAL(*) 5000 UNITS/ML VIAL (FIVE THOUSAND) SUBCUT SCH ×2 (05:57→13:58)
[2019-09-13] MEDS: Levothyroxine TAB* 150 MCG TAB PO SCH (05:57)
[2019-09-13] MEDS: Nicotine PATCH 14 MG/24 HR* PATCH TRANSDERM SCH (07:36)
[2019-09-13] MEDS: Acetaminophen TAB* 325 MG PO PRN (07:36)
[2019-09-13] MEDS: Tiotropium Brom/Olodaterol MDI INH SCH (07:43)
[2019-09-13] MEDS: Pantoprazole TAB * 40 MG TAB PO SCH (08:04)
[2019-09-13] MEDS: Hydrochlorothiazide TAB* 25 MG PO SCH (08:04)
[2019-09-13] MEDS: Docusate CAP* 100 MG PO SCH (08:04)
[2019-09-13] MEDS: buPROPion SR TAB.SR* 150 MG PO SCH (08:04)
[2019-09-13] MEDS: Calcitriol CAP* 0.25 MCG PO SCH (08:53)
[2019-09-13 11:46] VITALS: BP 121/79
[2019-09-13] MEDS: oxyCODONE TAB* 5 MG TAB PO PRN (11:48)
--- NOTE | 2019-09-14 02:54 | DS ---
DISCHARGE SUMMARY: DATE OF ADMISSION: 09/11/19 DATE OF DISCHARGE: 09/13/19 PRIMARY DIAGNOSES: 1. Headache in the setting of RECEIVABLE EXECUTIVE shunt. 2. Hypertension. SECONDARY DIAGNOSES: 1. History of Chiari malformation, status post surgical decompression, complicated by hydrocephalus in November 2015. 2. Status post RECEIVABLE EXECUTIVE shunt. 3. History of thyroid carcinoma. 4. Status post thyroidectomy with resultant hypothyroidism. 5. Hypertension. 6. Tobacco use. 7. COPD. 8. Obesity. 9. Chronic pain, on long-term opiate pain medication. HOSPITAL COURSE: A 44-year-old female with past medical history of Chiari malformation type 1, status post surgical decompression, complicated by hydrocephalus in November 2015, status post RECEIVABLE EXECUTIVE shunt placement; history of thyroid carcinoma, status post partial thyroidectomy with resultant hypothyroidism; hypertension; tobacco use; COPD; obesity; chronic pain, came as a transfer from [facility] with complaints of intense headache and palpable shunt with the shunt tubing that could be seen in her neck. The patient has had worse headaches over the last 1 to 2 weeks and the tubing became palpable per the patient. She called Neurosurgery and they recommended that the patient come to the hospital for observation and shunt check. The patient was seen by Dr. Harris in consultation for questionable RECEIVABLE EXECUTIVE shunt malfunction and resultant headaches. The patient had a CT scan, which revealed postoperative changes with the left frontal RECEIVABLE EXECUTIVE shunt with slit ventricles, unchanged from previous study compared to 07/28/18. Her headaches have improved through the hospital course with supportive management. Neurosurgery recommended keeping the patient in the hospital, evaluating her headaches and clinical progression, and the patient had a shunt study done on 09/12/19, which showed that the shunt tubing was intact with no disconnect or disruption. Per Neurosurgery, the patient also had an abdominal x-ray today, which showed that the RECEIVABLE EXECUTIVE shunt is in the abdomen in the posterior upper abdomen. Images have been reviewed by Dr. Harris, and he had seen the patient prior to discharge and the patient's headaches and symptoms have improved and he recommends discharge and followup with Neurosurgery as an outpatient. The patient is to follow up with Neurosurgery/Dr. Harris in 1 month. The patient to have noncontrast CT of the brain done prior to her appointment that Dr. Harris can review. Kindly request the primary care doctor to order a scan prior to her visit with Dr. Harris for further neurosurgical review. Vitals and labs noted to be stable at the time of discharge. Sodium 139, potassium 3.8, chloride 103, CO2 32, BUN 8, creatinine 0.6. PHYSICAL EXAMINATION: HEENT: NCAT. Heart: S1, S2 present. Regular at the time of exam. Lungs: Clear to auscultation. Abdomen: Soft. Extremities: No edema. Neuro: Alert, oriented. MEDICATION LIST: 1. Bupropion 150 mg p.o. b.i.d. 2. Colace 100 mg p.o. b.i.d. 3. Hydrochlorothiazide 12.5 mg p.o. daily. 4. QVAR 1 puff inhalation b.i.d. 5. Cyclobenzaprine 5 to 10 mg p.o. b.i.d. p.r.n. 6. Oxycodone 10 mg p.o. q.4 to 6 hours p.r.n. 7. Calcitriol 0.5 mg b.i.d. 8. Omeprazole 40 mg p.o. q.a.m. 9. Pilocarpine 5 mg p.o. b.i.d. 10. Levothyroxine 300 mcg p.o. daily. 11. Anoro 1 puff inhalation daily. 12. Nicotine patch. CONDITION AT THE TIME OF DISCHARGE: Stable. DISPOSITION: Home. TIME SPENT: Total time spent on discharge is equal to 45 minutes. [id number]/[facility] #: [id number] MTDD
== END 2019-09-13 14:45 | disposition home or self-care (01) ==
LOC: ED 21:45 → SSU 23:39
PROVIDERS: ADMIT Internal Medicine; ATTEND Internal Medicine
DX: R51 Headache (principal); J44.9 Chronic obstructive pulmonary disease, unspecified; I10 Essential (primary) hypertension; Z98.2 Presence of cerebrospinal fluid drainage device; G89.29 Other chronic pain; Z85.850 Personal history of malignant neoplasm of thyroid; Z87.798 Personal history of other (corrected) congenital malformations; E03.9 Hypothyroidism, unspecified; Z90.89 Acquired absence of other organs; F17.210 Nicotine dependence, cigarettes, uncomplicated; E66.9 Obesity, unspecified; Z79.899 Other long term (current) drug therapy; Z79.891 Long term (current) use of opiate analgesic
CPT/HCPCS: 36415; 70250; 70450; 71045; 72020; 74018; 80048; 80053; 81003; 82607; 82746; 83605; 84443; 84702; 85025; 85610; 87641; 94640; 96372; 96374; 99284; A9270-GY; G0378; J1644; J2765; J3535

== ENCOUNTER 2021-02-19 14:35 | Observation (INO) ==
[~2021-02-19 14:35] MED LIST: Buffered Lidocaine 1% SYRIN 1 ml INTRADERM ONE; Lactated Ringers 1000 ml BAG 1,000 ML IV SCH
[2021-02-19] MEDS ORDERED: Buffered Lidocaine 1% SYRIN 1 ml INTRADERM ONE (14:58)
[2021-02-19] MEDS ORDERED: ceFAZolin 2 GM PREMIX 2 GM/50 ML BAG ONE (14:58)
[2021-02-19] MEDS ORDERED: Dexamethasone IV 4 MG/ML VIAL 1 ml VIAL ONE (16:47)
[2021-02-19] MEDS ORDERED: Lidocaine 2% PF 5 ML VIAL ONE ×2 (16:47→17:05)
[2021-02-19] MEDS ORDERED: Propofol 10 MG/ML 20 ML BTL ONE (16:47)
[2021-02-19] MEDS ORDERED: Ondansetron 4 mg VIAL 2 MG/ML 2 ml VIAL ONE (16:47)
[2021-02-19] MEDS ORDERED: Midazolam 2 mg/2 ml VIAL 1 mg/ml 2 ml VIAL (2 mg) ONE (16:47)
[2021-02-19] MEDS ORDERED: fentaNYL 100 mcg/2 ml 50 MCG/ML VIAL ONE (16:47)
[2021-02-19] MEDS ORDERED: ROPIVACAINE 5 MG/ML 30 ML BTL (0.5%) ONE (17:05)
[2021-02-19] MEDS ORDERED: Lidocaine 2% PF 10 ML AMP ONE (17:05)
[2021-02-19] MEDS ORDERED: Lidocaine 1% MPF 5 ML VIAL ONE (17:07)
[2021-02-19] MEDS ORDERED: HYDROmorphone 1 MG/1 ML SYRINGE IV PRN (17:52)
[2021-02-19] MEDS ORDERED: Ondansetron 4 mg VIAL 2 MG/ML 2 ml VIAL IV PRN ×2 (17:52→20:31)
[2021-02-19] MEDS ORDERED: fentaNYL 100 mcg/2 ml 50 MCG/ML VIAL IV PRN (17:52)
[2021-02-19] MEDS ORDERED: Acetaminophen IV 1 GM/100ML 1,000 MG/100 ML VIAL IVPB PRN (17:52)
[2021-02-19] MEDS ORDERED: DiMENhydriNATE IV 50 mg/ml 1 ml VIAL IV PUSH PRN (17:52)
[2021-02-19] MEDS ORDERED: Naloxone 0.4 mg VIAL 0.4 mg/ml 1 ml VIAL IV PRN (17:52)
[2021-02-19] MEDS ORDERED: Acetaminophen IV 1 GM/100ML 100 ML ONE (20:23)
[2021-02-19] MEDS ORDERED: Lactulose 30 ml UDC PO PRN (20:31)
[2021-02-19] MEDS ORDERED: Ondansetron ODT 4 mg TAB 4 MG TAB PO PRN (20:31)
[2021-02-19] MEDS ORDERED: diPHENhydraMINE 25 mg TAB PO PRN (20:31)
[2021-02-19] MEDS ORDERED: Magnesium Hydroxide LIQ 30 ML UDC PO PRN (20:31)
[2021-02-19] MEDS ORDERED: diPHENhydraMINE IV 50 MG/ML 1 ml VIAL (BENADRYL) IV PRN (20:31)
[2021-02-19] MEDS ORDERED: Albuterol HFA INHALER 8 gm MDI INH PRN (20:38)
[2021-02-19] MEDS ORDERED: Lactated Ringers 1000 ml BAG 1,000 ML IV SCH (21:00)
[2021-02-20] MEDS: Magnesium Hydroxide LIQ 30 ML UDC PO SCH ×2 (00:24→10:16)
[2021-02-20] MEDS: Mometasone 220 MCG MDI INH SCH ×3 (00:26→17:26)
[2021-02-20] MEDS: ceFAZolin 1 GM ADVAN 1 GM in NS 0.9% 50 ML 50 ML IVPB SCH ×3 (02:20→17:19)
[2021-02-20] MEDS: HYDROcodone/ACETAMIN 5/325 mg TAB PO PRN ×2 (06:03→17:14)
[2021-02-20] MEDS ORDERED: Tiotropium Brom/Olodaterol MDI INH SCH (09:00)
[2021-02-20] MEDS ORDERED: Vitamin THERAPEUTIC TAB PO SCH (09:00)
[2021-02-20 16:05] VITALS: BP 130/88
== END 2021-02-20 18:30 | disposition home or self-care (01) ==
LOC: SSU 14:35 → OR 14:35
PROVIDERS: ADMIT Orthopaedic Surgery Hand Surgery; ATTEND Hospitalist